=== PATIENT | male | born 1945 | race Caucasian/White ===

== ENCOUNTER → 2019-09-27 | Outpatient (CLI) | payer MEDICARE ==
--- NOTE | 2019-09-27 11:22 | REP ---
Clinical: Pain. Technique: AP and frog lateral views of the right femur. Findings: Right hip replacement. 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 No acute fracture dislocation. Surrounding soft tissues are unremarkable. Impression: Right hip replacement. Age-related changes at the knee. Electronically Signed by Gustavo Workman MD 09/27/2019 11:13 A
== END ==
LOC: M WUC 10:59
PROVIDERS: ATTEND Nurse Practitioner Family
DX: M79.651 Pain in right thigh (principal)